=== PATIENT | female | born 1985 | race Caucasian/White ===

== ENCOUNTER 2019-06-12 09:54 | Inpatient (IN) | payer OTHER ==
[~2019-06-12] VITALS: Ht 165.1 cm; Wt 95.3 kg
[2019-06-12] MEDS ORDERED: FOLI1 PO (10:18)
[2019-06-12] MEDS ORDERED: PREN1TAB80 PO (10:18)
[2019-06-12 10:19] VITALS: BP 120/77
[2019-06-12] MEDS ORDERED: RINGERS SOLUTION,LACTATED 1,000 ML IV PRN (10:41)
[2019-06-12] MEDS ORDERED: OXYTOCIN 30 UNITS/LACT RINGERS 500 ML IV ONE (10:41)
[2019-06-12] MEDS ORDERED: METHYLERGONOVINE MALEATE 0.2 MG/ML VIAL IM PRN (10:45)
[2019-06-12] MEDS ORDERED: CITRIC ACID/SODIUM CITRATE 30 ML SOLUTION UDCUP PO PRN (10:45)
[2019-06-12] MEDS ORDERED: LIDOCAINE/PF 1% 30 ML VIAL INJ PRN (10:45)
[2019-06-12] MEDS ORDERED: METOCLOPRAMIDE HCL 5 MG/ML 2 ML VIAL IVP PRN (10:45)
[2019-06-12] MEDS: FentaNYL CITRATE-PF 100 MCG/2 ML VIAL IVP PRN ×2 (11:23→11:24)
[2019-06-12] MEDS: RINGERS SOLUTION,LACTATED 1,000 ML IV SCH ×3 (11:23→15:52)
[2019-06-12 11:48] LABS: BASOPHILS % (AUTO) 0.3 % (0.0-2.0); EOSINOPHILS % (AUTO) 0.4 % (1.0-6.0); HEMOGLOBIN 12.3 g/dL (12.0-16.0); LYMPHOCYTES # (AUTO) 2.6 K/uL (1.0-4.8); LYMPHOCYTES % (AUTO) 25.1 % (22.0-44.0); MEAN CORPUSCULAR HEMOGLOBIN 28.7 pg (26.0-34.0); MEAN CORPUSCULAR HGB CONC 33.2 G/dL (31.0-37.0); MEAN CORPUSCULAR VOLUME 86 fL (80-100); MONOCYTES # (AUTO) 0.4 K/uL (0.1-1.0); MONOCYTES % (AUTO) 3.9 % (2.0-9.0); NEUTROPHILS # (AUTO) 7.3 K/uL (1.8-7.7); NEUTROPHILS % (AUTO) 70.3 % (40.0-70.0); PLATELET COUNT (AUTO)-OB 229 K/uL (150-450); RED BLOOD CELL COUNT(AUTO) 4.29 MIL/uL (4.00-5.20)
[2019-06-12] MEDS ORDERED: ROPIVACAINE HCL/PF 0.2% 100 ML ED ONE ×2 (12:23→16:26)
[2019-06-12] MEDS ORDERED: OXYTOCIN 30 UNITS/LACT RINGERS 500 ML IV PRN (17:15)
[2019-06-12] MEDS ORDERED: MORPHINE SULFATE/PF 1 MG/ML 10 ML AMP ONE (18:36)
[2019-06-12] MEDS ORDERED: MIDAZOLAM HCL 2 MG/2 ML VIAL ONE (18:36)
[2019-06-12] MEDS ORDERED: LIDOCAINE/PF 2% 5 ML VIAL ONE (18:36)
[2019-06-12] MEDS ORDERED: MEPERIDINE-PF 25 MG/ML VIAL IVP PRN (19:15)
[2019-06-12] MEDS ORDERED: HYDROmorphone 2 MG/ML SYRINGE IVP PRN (19:15)
[2019-06-12] MEDS ORDERED: DiphenhydrAMINE HCL 50 MG/ML VIAL IVP PRN ×2 (19:15)
[2019-06-12] MEDS ORDERED: NALOXONE HCL 0.4 MG/ML VIAL IVP PRN (19:15)
[2019-06-12] MEDS ORDERED: ONDANSETRON HCL 4 MG/2 ML VIAL IVP PRN ×2 (19:15)
[2019-06-12] MEDS ORDERED: OxyCODONE HCL/ACETAMINOPHEN 5-325 MG TABLET PO PRN (19:15)
[2019-06-12] MEDS ORDERED: ROPIVACAINE HCL/PF 0.2% 100 ML ED PRN (19:15)
[2019-06-12] MEDS ORDERED: FentaNYL CITRATE-PF 100 MCG/2 ML VIAL IVP PRN (19:15)
[2019-06-12] MEDS ORDERED: OXYGEN THERAPY IH SCH ×3 (20:00)
[2019-06-13] MEDS ORDERED: RINGERS SOLUTION,LACTATED 1,000 ML IV ONE (00:21)
[2019-06-13] MEDS ORDERED: MEASLES/MUMPS/RUBELLA VACCINE, LIVE 0.5 ML/VIAL SQ ONE (00:30)
[2019-06-13] MEDS ORDERED: IBUPROFEN 600 MG TABLET PO PRN (00:30)
[2019-06-13] MEDS ORDERED: BENZOCAINE 20%/MENTHOL 56 GM SPRAY CANISTER TP PRN (00:30)
[2019-06-13] MEDS ORDERED: OxyCODONE HCL/ACETAMINOPHEN 5-325 MG TABLET PO PRN ×2 (00:30)
[2019-06-13] MEDS ORDERED: LANOLIN 7 GM OINTMENT TP PRN (00:30)
[2019-06-13] MEDS ORDERED: GLYCERIN/WITCH HAZEL LEAF 40 PADS JAR TP PRN (00:30)
[2019-06-13] MEDS: MAGNESIUM HYDROXIDE SUSPENSION 30 ML UDCUP PO SCH ×2 (09:41→21:00)
[2019-06-14] MEDS: MAGNESIUM HYDROXIDE SUSPENSION 30 ML UDCUP PO SCH (09:00)
[2019-06-14] MEDS ORDERED: IBUP-2070 PO (10:07)
== END 2019-06-14 10:15 | disposition home or self-care (01) | DRG 807 ==
LOC: OBSVTOIN 09:54 → 4S 09:54
PROVIDERS: ADMIT Obstetrics & Gynecology; ATTEND Obstetrics & Gynecology
PROC: 10E0XZZ Delivery of Products of Conception, External Approach (ICD-10-PCS; principal; 2019-06-12)
PROC: 0KQM0ZZ Repair Perineum Muscle, Open Approach (ICD-10-PCS; 2019-06-12)
PROC: 3E0R3BZ Introduction of Anesthetic Agent into Spinal Canal, Percutaneous Approach (ICD-10-PCS; 2019-06-12)
PROC: 00HU33Z Insertion of Infusion Device into Spinal Canal, Percutaneous Approach (ICD-10-PCS; 2019-06-12)
DX: O24.420 Gestational diabetes mellitus in childbirth, diet controlled (principal); Z37.0 Single live birth; O70.1 Second degree perineal laceration during delivery; Z3A.39 39 weeks gestation of pregnancy; Z88.2 Allergy status to sulfonamides; Z88.8 Allergy status to other drugs, medicaments and biological substances
CPT/HCPCS: 86850; 86900; 86901; J2250; J2590; J2795; J3010; J3490; J7120